=== PATIENT | female | born 1990 | race African-American/Black ===

== ENCOUNTER 2018-08-21 07:56 | Inpatient (IN) | payer SELFPAY ==
[~2018-08-21] VITALS: Ht 167.6 cm; Wt 69.9 kg
--- NOTE | 2018-08-21 07:56 | NUR ---
BIB SELF W C/O DIFFUSE ABDOMINAL PAIN W/ NAUSEA AND VOMITING X 5 DAYS, TO ER BED 1, HOOKED TO MONITOR, CHANGED TO DR ADDY DODD AT BEDSIDE.
[2018-08-21] MEDS ORDERED: FAMOTIDINE/PF INJ 20 MG/2 ML VIAL IV ONE ×2 (08:25→08:30)
[2018-08-21] MEDS ORDERED: ONDANSETRON HCL/PF 4 MG/2 ML VIAL ONE ×2 (08:25→09:13)
[2018-08-21] MEDS ORDERED: ONDANSETRON HCL/PF 4 MG/2 ML VIAL IVP ONE (08:30)
[2018-08-21] MEDS ORDERED: IV NS 0.9% 1,000 ML BAG IV ONE ×2 (08:30→09:00)
[2018-08-21 08:32] LABS: BASOPHILS % (AUTO) 0.3 % (0.0-2.0); EOSINOPHILS % (AUTO) 0.3 % (0.0-6.0); HEMATOCRIT 31 % (33-45); HEMOGLOBIN 9.7 g/dL (11.5-14.8); LYMPHOCYTES # (AUTO) 1.4 /CMM (0.8-4.8); LYMPHOCYTES % (AUTO) 14.5 % (20.0-44.0); MEAN CORPUSCULAR HGB CONC 31 g/dl (31.0-36.0); MEAN CORPUSCULAR VOLUME 71 fL (82-100); MONOCYTES % (AUTO) 10.9 % (2.0-12.0); NEUTROPHILS # (AUTO) 7.1 /CMM (1.8-8.9); PLATELET COUNT (AUTO) 683 /CMM (150-450); RED BLOOD CELL COUNT(AUTO) 4.46 MIL/uL (4.0-5.2); WHITE BLOOD COUNT (AUTO) 9.5 K/uL (4.3-11.0)
[2018-08-21 08:40] LABS: CALCIUM, SERUM 10.1 mg/dL (8.5-10.1); CREATININE 0.8 mg/dL (0.6-1.3); POTASSIUM 3.3 mmol/L (3.5-5.1)
[2018-08-21 08:46] LABS: ALBUMIN 4.1 g/dL (3.4-5.0); BILIRUBIN,DIRECT 0.1 mg/dL (0.0-0.2); BILIRUBIN,TOTAL 0.3 mg/dL (0.2-1.0); TOTAL PROTEIN, SERUM 9.2 g/dL (6.4-8.2)
--- NOTE | 2018-08-21 08:46 | NUR ---
PT NOT ABLE TO PROVIDE URINE SAMPLE AT THIS TIME, MADE AWARE
[2018-08-21 08:48] LABS: BAND % (MANUAL) 1 % (0.0-5.0); LYMPHOCYTES % (MANUAL) 18 % (16-48); MONOCYTES % (MANUAL) 11 % (0-11.0); NEUTROPHILS % (MANUAL) 70 (42-76)
[2018-08-21] MEDS ORDERED: LORAZEPAM INJ 2 MG/ML VIAL ONE (09:14)
--- NOTE | 2018-08-21 09:14 | NUR ---
NOTED W EPISODE OF VOMITTING, MD AWARE, VERBAL ORDER OF ZOFRAN 4MG IV AND ATIVAN 0.5MG IV RECEIVED FROM DR DALY.
[2018-08-21] MEDS ORDERED: LIDOCAINE VISCOUS 2% UD 15 ML UDC ONE (09:22)
[2018-08-21] MEDS ORDERED: MAG HYDROX/AL HYDROX/SIMETH 30 ML UDC ONE (09:22)
[2018-08-21 09:27] LABS: APPEARANCE,URINE Slightly Cloudy (CLEAR); BILIRUBIN,URINE MODERATE (NEGATIVE); BLOOD, URINE Moderate Ery/uL (NEGATIVE); COLOR,URINE Yellow (YELLOW); KETONES,URINE >=160 (NEGATIVE); LEUKOCYTE ESTERASE ,URINE Negative (NEGATIVE); NITRITE, URINE Negative (NEGATIVE); PROTEIN,URINE 100 mg/dl (NEGATIVE); UGLUCOSE Negative (NEGATIVE); UROBILINOGEN,URINE 0.2 EU/dL (0.2)
[2018-08-21] MEDS ORDERED: LORAZEPAM INJ 2 MG/ML VIAL IV ONE (09:30)
[2018-08-21] MEDS ORDERED: ONDANSETRON HCL/PF - ER 4 MG/2 ML VIAL IV ONE (09:30)
[2018-08-21] MEDS ORDERED: MAG HYDROX/AL HYDROX/SIMETH 30 ML UDC PO ONE (09:30)
[2018-08-21] MEDS ORDERED: LIDOCAINE VISCOUS 2% UD 15 ML UDC MM ONE (09:30)
[2018-08-21 09:38] LABS: BACTERIA,URINE None seen /HPF (None Seen); SQUAMOUS EPITHELIAL CELL,UR Moderate /HPF (None Seen)
--- NOTE | 2018-08-21 10:12 | NUR ---
US TECH AT BEDSIDE
--- NOTE | 2018-08-21 10:42 | NUR ---
PT COMFORTABLY ASLEEP IN BED, HOOKED TO MONITOR. VSS. WILL CONTINUE TO MONITOR.
--- NOTE | 2018-08-21 11:40 | NUR ---
CALLED DR EPSTEIN FOR A DR TO
[2018-08-21] MEDS ORDERED: PIPERACILLIN /TAZOBACTAM 3.375 G in IV D5W 50 ML IV ONE (12:00)
--- NOTE | 2018-08-21 12:09 | NUR ---
PER HOUSE SUP. 108 MEDSURGE
--- NOTE | 2018-08-21 14:12 | NUR ---
REPORT GIVEN TO LAWRENCE JULIO OF MED-SURG UNIT FOR [facility]
--- NOTE | 2018-08-21 15:00 | NUR ---
ROLL SHEETING CUTTER NOTE RECEIVED PATIENT FROM ER, REPORT WAS GIVEN TO THE CHARGE NURSE AT 1430 WHILE I WAS ON BREAK. CHARGE NURSE GAVE ME THE REPORT. PATIENT CAME IN AT 1500. GUARDING WITH PAIN 8/10. AMBULATORY BUT GUARDING WHILE WALKING FROM THE BATHROOM. PATIENT AWARE AND ALERTX4. QUEUED ORDERS FROM DR DELACRUZ WAS ALREADY ACTIVATED. MORPHINE 2MG WAS GIVEN TO THE PATIENT. WILL REASSESS FOR PAIN AFTER A FEW MINUTE. BED ON LOWEST POSITION. CALL LIGHT WITHIN REACH. WILL CONT TO MONITOR
[2018-08-21] MEDS: MORPHINE SULFATE INJ 2 MG/ML DISP.SYRIN IV PRN ×2 (15:32→19:42)
[2018-08-21 16:00] VITALS: BP 118/71
[2018-08-21] MEDS ORDERED: Z GUARD REMEDY 2 OZ OINT TP PRN (16:00)
[2018-08-21] MEDS ORDERED: MAG HYDROX/AL HYDROX/SIMETH 30 ML UDC PO PRN (16:00)
[2018-08-21] MEDS ORDERED: ZOLPIDEM TARTRATE 5 MG TABLET PO PRN (16:00)
[2018-08-21] MEDS ORDERED: ACETAMINOPHEN 325 MG TABLET PO PRN (16:00)
[2018-08-21] MEDS ORDERED: MAGNESIUM HYDROXIDE 30 ML UDC PO PRN (16:00)
--- NOTE | 2018-08-21 17:27 | NUR ---
RN NOTE PATIENT IS GOING TO HAVE A HIDA SCAN ISREAL AT 1815. VIVEK, THE EDUCATION ANALYST ON BEDSIDE TO GET THE PATIENT'S CONSENT. PATIENT AWARE WHAT THE TEST IS ABOUT. SIGNED THE CONSENT. MORPHINE INJ WAS GIVEN AND PATIENT STATES IT HELPED REDUCE THE PAIN. NO COMPLAINS OF ANY DISTRESS AT THIS TIME.
--- NOTE | 2018-08-21 17:30 | NUR ---
SUMANTH DOYLE, THE [facility] SCAN SITE SAFETY MANAGER, ALLOWED THE PATIENT TO HAVE AT LEAST A CUP OF WATER OR A FEW SIPS OF APPLE JUICE BEFORE THE PROCEDURE.
[2018-08-21] MEDS: HYDROCODONE/APAP 5/325MG 1 EACH TABLET PO PRN (17:49)
--- NOTE | 2018-08-21 17:55 | NUR ---
RN NOTE PATIENT LEFT FOR HIDA SCAN VIA WHEELCHAIR. PATIENT STILL IN PAIN. WAS GIVEN NORCO. PATIENT INSISTED TO DO THE HIDA SCAN MILIND DUE TO DISTRESS.
[2018-08-21] MEDS ORDERED: PIPERACILLIN /TAZOBACTAM 4.5 G in IV D5W 50 ML IV SCH (18:00)
--- NOTE | 2018-08-21 18:24 | NUR ---
RN NOTE PATIENT HAS A ZOSYN ORDER AT 1800. PATIENT AT HIDA SCAN, UNABLE TO GIVE ON TIME. WILL ENDORSE TO NIGHT NURSE
--- NOTE | 2018-08-21 19:17 | NUR ---
RN CLOSING NOTE PATIENT NOT IN ROOM. ENDORSED TO NOC SHIFT THAT THE PATIENT IS AT A PROCEDURE. DR EPSTEIN CAME IN AND LEFT HIS PHONE NUMBER TO CALL FOR RESULTS. TOLD NOC SHIFT ABOUT THE MISSED ZOSYN AT 1800. AND REASSESSMENT OF NORPA FOR PAIN. PATIENT STILL NPO.
[2018-08-21] MEDS: PIPERACILLIN /TAZOBACTAM 3.375 G in IV D5W 100 ML IV SCH (19:41)
[2018-08-21] MEDS: ONDANSETRON HCL/PF 4 MG/2 ML VIAL IVP PRN (19:43)
[2018-08-21 20:00] VITALS: BP 104/64
--- NOTE | 2018-08-21 20:14 | NUR ---
RN MS INITIAL NOTE RECEIVED PT BACK FROM HIDA SCAN, AOX4 ON R/A C/O PAIN 8-02/16 ABD', SEEN BY DR EPSTEIN AFTER SCAN, TOLD RESULTS NEGATIVE, STILL NPO, PER PT CLEARED FOR PO DIET, CALLED DR EPSTEIN LEFT MESSAGE FOR CLARIFICATION OF ORDER. MORPHINE 2 MG IV GIVEN WELL ZOFRAN FOR C/O OF NAUSEA. SEEN AT BEDSIDE BY DR EPSTEIN SHERIFFS, ASSESSED FURTHER FOR SYMPTOMS, WILL CONT' TO MONITOR.
[2018-08-21] MEDS ORDERED: SUCRALFATE 1 G TABLET PO SCH (21:00)
[2018-08-21] MEDS: SUCRALFATE 1 G/10 ML UDC PO SCH (22:20)
--- NOTE | 2018-08-22 | NUR ---
PROTONIX IV PUSH OUT OF STOCK. NOT GIVEN. ICU 3RD FLOOR WELL OUT OF STOCK. Addendum: 08/22/18 at 0230 by HANSA CHAMBERS RN THEA MARRUFOBIG 6 DEALER NOTIFIED.
[2018-08-22] MEDS: PANTOPRAZOLE 40 MG VIAL IV SCH ×2 (00:30→22:06)
[2018-08-22] MEDS: PIPERACILLIN /TAZOBACTAM 3.375 G in IV D5W 100 ML IV SCH ×3 (02:01→19:56)
[2018-08-22] MEDS: MORPHINE SULFATE INJ 2 MG/ML DISP.SYRIN IV PRN ×4 (03:10→18:57)
[2018-08-22] MEDS: ONDANSETRON HCL/PF 4 MG/2 ML VIAL IVP PRN ×3 (03:11→17:54)
[2018-08-22] MEDS: HYDROCODONE/APAP 5/325MG 1 EACH TABLET PO PRN ×4 (03:58→17:54)
[2018-08-22 06:25] LABS: BASOPHILS % (AUTO) 0.5 % (0.0-2.0); EOSINOPHILS % (AUTO) 1.2 % (0.0-6.0); HEMATOCRIT 26 % (33-45); LYMPHOCYTES # (AUTO) 1.2 /CMM (0.8-4.8); LYMPHOCYTES % (AUTO) 13.6 % (20.0-44.0); MEAN CORPUSCULAR HGB CONC 31 g/dl (31.0-36.0); MEAN CORPUSCULAR VOLUME 71 fL (82-100); MONOCYTES # (AUTO) 1.2 /CMM (0.1-1.30); NEUTROPHILS # (AUTO) 6.6 /CMM (1.8-8.9); NEUTROPHILS % (AUTO) 71.7 % (43.0-81.0); PLATELET COUNT (AUTO) 510 /CMM (150-450); RED BLOOD CELL COUNT(AUTO) 3.67 MIL/uL (4.0-5.2); WHITE BLOOD COUNT (AUTO) 9.2 K/uL (4.3-11.0)
[2018-08-22 06:32] LABS: CALCIUM, SERUM 8.6 mg/dL (8.5-10.1); CREATININE 0.7 mg/dL (0.6-1.3); MAGNESIUM 1.9 mg/dL (1.8-2.4); PHOSPHORUS 3.1 mg/dL (2.5-4.9); POTASSIUM 3.3 mmol/L (3.5-5.1)
--- NOTE | 2018-08-22 06:33 | NUR ---
RN CLOSING NOTE PT ENDORSED ASLEEP, WILL ENDORSE TO AM SHIFT TO CONT' PLAN OF. ALL NEEDS ATTENDED.
[2018-08-22 08:00] VITALS: BP 100/42
[2018-08-22] MEDS: SUCRALFATE 1 G/10 ML UDC PO SCH ×4 (08:10→21:45)
[2018-08-22 09:10] LABS: LYMPHOCYTES % (MANUAL) 11 % (16-48); MONOCYTES % (MANUAL) 11 % (0-11.0); NEUTROPHILS % (MANUAL) 78 (42-76)
--- NOTE | 2018-08-22 10:58 | NUR ---
MS Nurse.spoked with Dr.Sussman green; patient's having vaginal bleeding per requesting , stated will see her today
[2018-08-22] MEDS ORDERED: POTASSIUM CHLORIDE 20 MEQ TAB.PRT.SR PO SCH (11:30)
--- NOTE | 2018-08-22 11:40 | NUR ---
SUMANTH Roy will call when pt. is ready.
[2018-08-22] MEDS ORDERED: IV NS 0.9% 250 ML IV ONE (12:35)
[2018-08-22] MEDS ORDERED: IOHEXOL-300 100 ML VIAL IV ONE (12:35)
[2018-08-22] MEDS ORDERED: CT SWABBABLE VALVE TRANS SET 1 EA INFUS.SET MC ONE (12:35)
[2018-08-22 16:00] VITALS: BP 102/51
[2018-08-22 16:36] LABS: FERRITIN 6 ng/mL (8-388)
[2018-08-22 16:37] LABS: IRON, SERUM 17 ug/dl (50-175); TOTAL IRON BINDING CAPACITY 322 ug/dl (250-450)
--- NOTE | 2018-08-22 19:46 | NUR ---
RN NOTE PATIENT ALERT ORIENTED, PAIN MANAGED WITH CURRENT MEDICATION. SAW PATIENT, AWAITING CONSULTATION FROM GYNO DR. GONZALEZ WNL, PAIN MANAGED, CA 125 TEST ORDERED TODAY PER FINE ARTS TEACHER. MANAGE PAIN AND MONTITOR PATIENT. SAFETY MEASURE IN PLACE. NAUSEA AND VOMITTING PRESENT X1. ENDORSE TO NIGHT NURSE,
[2018-08-22 20:00] VITALS: BP 95/51
[2018-08-22] MEDS ORDERED: PANTOPRAZOLE 40 MG VIAL ONE (21:58)
[2018-08-23] VITALS (7 sets, daily range): BP systolic 95–129; BP diastolic 52–77
[2018-08-23] MEDS: MORPHINE SULFATE INJ 2 MG/ML DISP.SYRIN IV PRN ×4 (00:32→12:14)
[2018-08-23] MEDS: ONDANSETRON HCL/PF 4 MG/2 ML VIAL IVP PRN (00:32)
[2018-08-23] MEDS: HYDROCODONE/APAP 5/325MG 1 EACH TABLET PO PRN ×3 (01:04→07:44)
[2018-08-23] MEDS: PIPERACILLIN /TAZOBACTAM 3.375 G in IV D5W 100 ML IV SCH ×3 (02:38→18:00)
[2018-08-23 07:25] LABS: CALCIUM, SERUM 8.2 mg/dL (8.5-10.1); CREATININE 0.5 mg/dL (0.6-1.3); MAGNESIUM 1.9 mg/dL (1.8-2.4); POTASSIUM 3.8 mmol/L (3.5-5.1)
--- NOTE | 2018-08-23 07:37 | NUR ---
PATIENT CRYING IN PAIN. OFFERED NORCO FOR PATIENT PAIN SAYS DILAUDED IS THE ONLY THING THAT WORKS. SAYS SHE IS NAUSEATED. DRY HEAVES AT THIS TIME. PATIENT SAYS SHE HAS NOT EATEN IN 8 DAYS. SAYS SHE WANTS PAIN TO STOP AND TO SEE GYNECOLOGY MD.
--- NOTE | 2018-08-23 08:16 | NUR ---
MED/SURG Nurse c/o abdominal pain 03/18, medicated with morphine 2mg ivp as ordered patient encouraged use of call light to make all needs known will continue to assess and evaluate call light with in reach
[2018-08-23] MEDS: SUCRALFATE 1 G/10 ML UDC PO SCH ×4 (09:46→22:16)
[2018-08-23] MEDS: MEGESTROL ACETATE 40 MG TABLET PO SCH (09:55)
[2018-08-23 10:21] LABS: BASOPHILS % (AUTO) 0.3 % (0.0-2.0); LYMPHOCYTES # (AUTO) 1.1 /CMM (0.8-4.8); MONOCYTES # (AUTO) 0.8 /CMM (0.1-1.30)
[2018-08-23 10:24] LABS: EOSINOPHILS % (AUTO) 7.2 % (0.0-6.0); HEMATOCRIT 22 % (33-45); LYMPHOCYTES % (AUTO) 13.4 % (20.0-44.0); MEAN CORPUSCULAR HGB CONC 30 g/dl (31.0-36.0); MEAN CORPUSCULAR VOLUME 73 fL (82-100); MONOCYTES % (AUTO) 9.6 % (2.0-12.0); NEUTROPHILS # (AUTO) 5.7 /CMM (1.8-8.9); NEUTROPHILS % (AUTO) 69.5 % (43.0-81.0); PLATELET COUNT (AUTO) 330 /CMM (150-450); RED BLOOD CELL COUNT(AUTO) 2.98 MIL/uL (4.0-5.2); WHITE BLOOD COUNT (AUTO) 8.2 K/uL (4.3-11.0)
[2018-08-23 10:27] LABS: HEMOGLOBIN 6.4 g/dL (11.5-14.8)
--- NOTE | 2018-08-23 10:45 | NUR ---
Left message with answering service for H&H 6.8 and 22. Robbie RN
[2018-08-23 11:09] LABS: EOSINOPHILS % (MANUAL) 10 % (0-4); LYMPHOCYTES % (MANUAL) 17 % (16-48); MONOCYTES % (MANUAL) 4 % (0-11.0); NEUTROPHILS % (MANUAL) 69 (42-76)
[2018-08-23] MEDS ORDERED: SOD FERRIC GLUC 125 MG in IV NS 0.9% 100 ML IV SCH (14:00)
--- NOTE | 2018-08-23 18:06 | NUR ---
Unable to give zosyn at this time as she is a hard stick patient. Blood transfusion running in primary IV start by charge nurse x2 attempts and grant writer x2 the same. Jese Costello RN
--- NOTE | 2018-08-23 19:52 | NUR ---
HANDOFF TO NIGHT NURSE PARMJIT Tapia RN. KATHIE VICENTE RN
--- NOTE | 2018-08-23 19:53 | NUR ---
MS/RN NOTES RECEIVED PT. LYING IN BED. PT. IS AWAKE, ALERT AND ORIENTED X4. BREATHING EVEN AND UNLABORED ON ROOM AIR. NO SOB, RESPIRATORY DISTRESS OR COMPLAINTS OF PAIN NOTED AT THIS TIME. PT. WITH LEFT HAND 20 GAUGE IV SALINE LOCK PRESENT, PATENT AND INTACT. PER DAYSHIFT NURSE PT. RECEIVED 1 UNIT PRBC TODAY AND PT. WILL BE NPO AFTER MIDNIGHT PENDING EGD TOMORROW. PT. IS AWARE. CONSENT SIGNED AND PLACED IN PT. CHART. BED LOCKED AND IN LOWEST POSITION, SIDE RAILS UP X2, CALL LIGHT WITHIN REACH, WILL CONTINUE TO MONITOR.
[2018-08-23] MEDS ORDERED: PANTOPRAZOLE 40 MG VIAL ONE (22:10)
[2018-08-23] MEDS: PANTOPRAZOLE 40 MG VIAL IV SCH (22:16)
[2018-08-24] MEDS: HYDROCODONE/APAP 5/325MG 1 EACH TABLET PO PRN (00:08)
[2018-08-24] MEDS: PIPERACILLIN /TAZOBACTAM 3.375 G in IV D5W 100 ML IV SCH ×2 (01:39→10:00)
[2018-08-24] MEDS: MORPHINE SULFATE INJ 2 MG/ML DISP.SYRIN IV PRN (01:56)
[2018-08-24 04:00] VITALS: BP 123/69
--- NOTE | 2018-08-24 06:05 | NUR ---
MS/RN NOTES PT. IS LYING IN BED RESTING. BREATHING EVEN AND UNLABORED ON ROOM AIR. NO SOB, RESPIRATORY DISTRESS OR COMPLAINTS OF PAIN NOTED AT THIS TIME. PT. WITH LEFT HAND 20 GAUGE IV SALINE LOCK PRESENT, PATENT AND INTACT. PT. REMAINS NPO SINCE MIDNIGHT PENDING EGD TODAY. CONSENT IS SIGNED AND PLACED IN PT. CHART. ALL PT. NEEDS MET. BED LOCKED AND IN LOWEST POSITION, SIDE RAILS UP X2, CALL LIGHT WITHIN REACH, WILL ENDORSE TO DAYSHIFT NURSE FOR CONTINUITY OF CARE.
[2018-08-24 08:00] VITALS: BP 101/59
[2018-08-24] MEDS: MEGESTROL ACETATE 40 MG TABLET PO SCH (08:36)
[2018-08-24] MEDS: SUCRALFATE 1 G/10 ML UDC PO SCH (08:36)
[2018-08-24 08:55] LABS: BASOPHILS # (AUTO) 0.1 /CMM (0.0-0.2); BASOPHILS % (AUTO) 1.1 % (0.0-2.0); EOSINOPHILS % (AUTO) 7.8 % (0.0-6.0); HEMATOCRIT 31 % (33-45); HEMOGLOBIN 9.7 g/dL (11.5-14.8); LYMPHOCYTES # (AUTO) 3.2 /CMM (0.8-4.8); LYMPHOCYTES % (AUTO) 28.8 % (20.0-44.0); MEAN CORPUSCULAR HGB CONC 31 g/dl (31.0-36.0); MEAN CORPUSCULAR VOLUME 72 fL (82-100); MONOCYTES # (AUTO) 0.9 /CMM (0.1-1.30); MONOCYTES % (AUTO) 7.9 % (2.0-12.0); NEUTROPHILS % (AUTO) 54.4 % (43.0-81.0); PLATELET COUNT (AUTO) 524 /CMM (150-450); RED BLOOD CELL COUNT(AUTO) 4.39 MIL/uL (4.0-5.2); WHITE BLOOD COUNT (AUTO) 11.1 K/uL (4.3-11.0)
[2018-08-24 09:20] LABS: EOSINOPHILS % (MANUAL) 9 % (0-4); LYMPHOCYTES % (MANUAL) 33 % (16-48); MONOCYTES % (MANUAL) 3 % (0-11.0); NEUTROPHILS % (MANUAL) 55 (42-76)
== END 2018-08-24 12:35 | disposition home or self-care (01) | DRG 445 ==
LOC: ER 07:58 → MEDSG1 14:34
PROVIDERS: ADMIT Internal Medicine; ATTEND Internal Medicine
PROC: 30233N1 Transfusion of Nonautologous Red Blood Cells into Peripheral Vein, Percutaneous Approach (ICD-10-PCS; principal; 2018-08-23)
DX: K81.9 Cholecystitis, unspecified (principal); D62 Acute posthemorrhagic anemia; D25.9 Leiomyoma of uterus, unspecified; E87.6 Hypokalemia; F17.210 Nicotine dependence, cigarettes, uncomplicated; D50.9 Iron deficiency anemia, unspecified; R32 Unspecified urinary incontinence; F19.90 Other psychoactive substance use, unspecified, uncomplicated; A08.4 Viral intestinal infection, unspecified
CPT/HCPCS: 36415; 76705-TC; 76856-TC; 78226; 80048-TC; 80061-TC; 80076-TC; 81000-TC; 82728-TC; 83540-TC; 83605-TC; 83690-TC; 83735-TC; 84100-TC; 84702-TC; 85025-TC; 86304; 86850-TC; 86921-TC; 87081-TC; A6253; A6402; A9537; C9113; G0378; J2060; J2270; J2405; J2543; J2916; J3490; J7030; J7050; J7060; P9016-BL; Q9967